=== PATIENT | male | born 1965 | race Caucasian/White ===

== ENCOUNTER 2016-05-14 13:11 | Emergency (ER) | payer OTHER ==
[2016-05-14 14:15] VITALS: BP 127/75; PULSE 53; TEMP 98.5; BMI 71.1
[2016-05-14] MEDS ORDERED: KETOROLAC TROMETHAMINE 60 MG/2 ML VIAL IM ONE (16:21)
[2016-05-14] MEDS ORDERED: KETOROLAC TROMETHAMINE 60 MG/2 ML VIAL ONE (16:24)
[2016-05-14 16:48] LABS: URINE APPEARANCE CLEAR; URINE BILIRUBIN NEGATIVE (NEGATIVE); URINE BLOOD NEGATIVE (NEGATIVE); URINE COLOR YELLOW; URINE GLUCOSE (UA) NEGATIVE (NEGATIVE); URINE KETONE NEGATIVE (NEGATIVE); URINE LEUK ESTERASE NEGATIVE (NEGATIVE); URINE NITRITE NEGATIVE (NEGATIVE); URINE PROTEIN NEGATIVE (NEGATIVE); URINE UROBILINOGEN NEGATIVE E.U./dl (0.2-1.0)
--- NOTE | 2016-05-14 17:33 | PDOC ---
History of Present Illness - General Chief Complaint: Pain, Acute Stated Complaint: LEG PAIN (BOTH) Time Seen by Provider: 05/14/16 15:23 History Source: Patient, [employer] Branch Used (Karen [id number]) Exam Limitations: Language Barrier - History of Present Illness Initial Comments: 05/14/16 17:30 50 yr male with 2 months pain to left buttock radiates to left leg worse with walking. Pt states he has had pain to the right leg as well in the past and was told he had herniated disc. 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 No urine or bowel dysfunction no saddle anesthesia, no leg weakness or numbness. Past History - Past Medical History Allergies/Adverse Reactions: Allergies Allergy/AdvReac Type Severity Reaction Status Date / Time No Known Allergies Allergy Verified 05/14/16 14:06 Home Medications: Ambulatory Orders Cyclobenzaprine HCl [Flexeril -] 10 mg PO TID PRN #21 tablet 05/14/16 Naproxen [Naprosyn -] 500 mg PO BID PRN #14 tablet 05/14/16 Other medical history: denies - Psycho/Social/Smoking Cessation Hx Anxiety: No Suicidal Ideation: No Smoking History: Never smoked Have you smoked in the past 12 months: No Hx Alcohol Use: No Drug/Substance Use Hx: No Substance Use Type: None *Physical Exam - Vital Signs Last Vital Signs Temp Pulse Resp BP Pulse Ox 98.5 F 53 L 18 127/75 98 05/14/16 14:06 05/14/16 14:06 05/14/16 14:06 05/14/16 14:06 05/14/16 14:06 - Physical Exam General Appearance: Yes: Nourished, Appropriately Dressed HEENT: positive: EOMI, KEITH, TMs Normal, Pharynx Normal Neck: positive: Supple Respiratory/Chest: positive: Lungs Clear, Normal Breath Sounds Cardiovascular: positive: Regular Rhythm, Regular Rate Gastrointestinal/Abdominal: positive: Normal Bowel Sounds, Soft. negative: Tender Male Genitalia: positive: normal genitalia. negative: testicular tenderness Rectal Exam: positive: deferred Musculoskeletal: positive: Normal Inspection. negative: CVA Tenderness, CVA Tenderness (R), CVA Tenderness (L), Decreased Range of Motion, Muscle Spasm, Vertebral Tenderness Extremity: positive: Normal Capillary Refill, Normal Inspection, Normal Range of Motion, Tender (LEFT BUTTOCK TO ANTERIor THIGH, PAIN WITH SLR AT 90 DEGREES ) , Pelvis Stable. negative: Delayed Capillary Refill, Pedal Edema, Swelling, Calf Tenderness, Erythema, Inflammation Integumentary: positive: Normal Color, Dry, Warm Neurologic: positive: Fully Oriented, Alert, Normal Mood/Affect, Normal Response , Motor Strength 5/5 ED Treatment Course - ADDITIONAL ORDERS Additional order review: Laboratory Results 05/14/16 16:30 Urine Color Yellow Urine Appearance Clear Urine pH 5.0 Ur Specific Ruffin 1.027 Urine Protein Negative Urine Glucose (UA) Negative Urine Ketones Negative Urine Blood Negative Urine Nitrite Negative Urine Bilirubin Negative Urine Urobilinogen Negative Ur Leukocyte Esterase Negative - RADIOLOGY Radiology Studies Ordered: Category Date Time Status SPINE-LUMBAR SACRAL [RAD] Stat Radiology 05/14/16 16:21 Completed - Medications Given in the ED: ED Medications Discontinued Medications Generic Name Dose Route Start Last Admin Trade Name Freq PRN Reason Stop Dose Admin Ketorolac Tromethamine 60 mg 05/14/16 16:21 05/14/16 16:29 Toradol Injection - IM 05/14/16 16:22 60 mg ONCE ONE Administration Medical Decision Making - Medical Decision Making 05/14/16 17:47 cC: pain to left lower leg and buttock radiates down the leg for 2 months. no fever no back pain no abd pain pain reproduced with walking, bending down and raising left leg no urine or bowel dysfunction, no saddle anesthesia 05/14/16 17:59 pt ambulatory agrees with plan of care and for follow up plan . all questions asked and answered before discharge. 05/17/16 19:44 *DC/Admit/Observation/Transfer Diagnosis at time of Disposition: Sciatica of left side - Discharge Dispostion Disposition: HOME Condition at time of disposition: Good - Prescriptions Prescriptions: Cyclobenzaprine HCl [Flexeril -] 10 mg PO TID PRN #21 tablet PRN Reason: Muscle Spasms Naproxen [Naprosyn -] 500 mg PO BID PRN #14 tablet PRN Reason: Pain - Referrals Referrals: Terence Lehman MD [Staff Physician] - - Patient Instructions Additional Instructions: FOLLOW UP WITH THE ORTHOPEDIST LISTED BELOW OR WITH YOUR MEDICAL DOCTOR TAKE THE MEDICATIONS DIRECTED FOR PAIN AND MUSCLE SPASM RETURN TO ER FOR ANY WORSENING PAIN SEGUIMIENTO CON EL ORTOPEDISTA SEALADO ABAJO O CON MACARIO ANSLEY TINEO LOS MEDICAMENTOS LENARD DIRIGIDOS PARA EL DOLOR Y ESPASMOS MUSCULARES DEVUELVA A ER PARA CUALQUIER DOLOR DE ENFORME
== END 2016-05-14 18:41 | disposition home or self-care (01) ==
LOC: JER 13:11 → JERFT 13:11
PROC: 3E0333Z Introduction of Anti-inflammatory into Peripheral Vein, Percutaneous Approach (ICD-10-PCS; principal; 2016-05-14)
DX: M54.32 Sciatica, left side (principal)
CPT/HCPCS: 72100-TC; 81003; 96374; 99281-25